=== PATIENT | female | born 1995 | race Two or more races ===

== ENCOUNTER 2017-12-09 14:53 | Emergency (ER) | payer OTHER ==
[~2017-12-09] VITALS: Ht 165.1 cm; Wt 56.7 kg
--- NOTE | 2017-12-09 15:05 | NUR ---
PT PRESENTED TO THE ER WITH A C/O LEFT FLANK PAIN X 4 WKS. PT STATED THAT SHE WENT TO A SPECIALIST AND THE XRAY AND MRI WERE NEGATIVE. PT IS TO F/U WITH HER PMD ON MONDAY, BUT COULD NOT TAKE THE PAIN. PT IS UNABLE TO SIT OR LIE DOWN WITHOUT PAIN. PT PREFERS TO STAND. ISABEL, PAC AT THE BEDSIDE.
--- NOTE | 2017-12-09 15:17 | NUR ---
urine obtained called lab for pickup
[2017-12-09] MEDS ORDERED: ACETAMINOPHEN ES 500 MG TABLET ONE (15:21)
[2017-12-09] MEDS ORDERED: FAMOTIDINE (20 MG) 20 MG TABLET ONE (15:22)
[2017-12-09] MEDS ORDERED: ONDANSETRON 4 MG TAB.RAPDIS ONE (15:22)
--- NOTE | 2017-12-09 15:24 | NUR ---
XRAY DONE AT THE BEDSIDE.
--- NOTE | 2017-12-09 15:27 | NUR ---
BLOOD DRAW AT THE BEDSIDE.
[2017-12-09] MEDS ORDERED: ONDANSETRON 4 MG TAB.RAPDIS PO ONE (15:30)
[2017-12-09] MEDS ORDERED: FAMOTIDINE (20 MG) 20 MG TABLET PO ONE (15:30)
[2017-12-09] MEDS ORDERED: ACETAMINOPHEN ES 500 MG TABLET PO ONE (15:30)
[2017-12-09 15:35] LABS: BASOPHILS # (AUTO) 0.1 /CMM (0.0-0.2); BASOPHILS % (AUTO) 0.8 % (0.0-2.0); EOSINOPHILS % (AUTO) 0.6 % (0.0-6.0); HEMATOCRIT 40 % (33-45); HEMOGLOBIN 14.3 g/dL (11.5-14.8); LYMPHOCYTES # (AUTO) 1.4 /CMM (0.8-4.8); LYMPHOCYTES % (AUTO) 21.1 % (20.0-44.0); MEAN CORPUSCULAR HGB CONC 36 g/dl (31.0-36.0); MEAN CORPUSCULAR VOLUME 90 fL (82-100); MONOCYTES # (AUTO) 0.4 /CMM (0.1-1.30); MONOCYTES % (AUTO) 6.2 % (2.0-12.0); NEUTROPHILS # (AUTO) 4.9 /CMM (1.8-8.9); NEUTROPHILS % (AUTO) 71.3 % (43.0-81.0); PLATELET COUNT (AUTO) 224 /CMM (150-450); RDW COEFFICIENT OF VARIATION 12.1 (11.5-15.0); RED BLOOD CELL COUNT(AUTO) 4.45 MIL/uL (4.0-5.2); WHITE BLOOD COUNT (AUTO) 6.8 K/uL (4.3-11.0)
[2017-12-09 15:37] LABS: APPEARANCE,URINE Clear (CLEAR); BILIRUBIN,URINE Negative (NEGATIVE); BLOOD, URINE Negative Ery/uL (NEGATIVE); COLOR,URINE Yellow (YELLOW); KETONES,URINE Negative (NEGATIVE); LEUKOCYTE ESTERASE ,URINE Negative (NEGATIVE); NITRITE, URINE Negative (NEGATIVE); PROTEIN,URINE Negative (NEGATIVE); UGLUCOSE Negative (NEGATIVE); UROBILINOGEN,URINE 0.2 EU/dL (0.2)
[2017-12-09 15:51] LABS: ALBUMIN 4.9 g/dL (3.4-5.0); BILIRUBIN,DIRECT 0.2 mg/dL (0.0-0.2); BILIRUBIN,TOTAL 1.1 mg/dL (0.2-1.0); CREATININE 0.8 mg/dL (0.6-1.3); POTASSIUM 3.6 mmol/L (3.5-5.1); TOTAL PROTEIN, SERUM 7.4 g/dL (6.4-8.2)
--- NOTE | 2017-12-09 16:21 | NUR ---
Patient discharged to home in stable condition. Written and verbal after care instructions given. Patient verbalizes understanding of instruction AND RX. PT REC'D A COPY OF ALL LABS AND IMAGING. PT AMBULATED OUT WITH A STEADY GAIT. VSS.
[2017-12-09 16:23] VITALS: BP 124/78
== END 2017-12-09 16:20 | disposition home or self-care (01) ==
LOC: ER 14:57
DX: R10.12 Left upper quadrant pain (principal)
CPT/HCPCS: 36415; 74018; 80048; 80076; 81001; 83690; 84703; 85025; 99285; A4606; Q0162; Z7610; 81000-TC